=== PATIENT | female | born 1940 | race Caucasian/White ===

== ENCOUNTER 2016-12-30 15:31 | Emergency (ER) | payer MEDICARE, OTHER ==
[2016-12-30] MEDS ORDERED: IPRATROPIUM/ALBUTEROL SULFATE 3 ML AMPUL.NEB NEB ONE (15:52)
[2016-12-30] MEDS: IPRATROPIUM/ALBUTEROL SULFATE 3 ML AMPUL.NEB NEB ONE (15:55)
[2016-12-30 16:06] LABS: BASOPHILS % 0.8 (0.0-1.5); EOSINOPHILS % 6.2 % (0.0-6.8); LYMPHOCYTES # 1.5 # k/uL (0.6-4.0); MEAN CORPUSCULAR HEMOGLOBIN 32.5 pg (28.0-34.0); MONOCYTES # 0.3 # k/uL (0.0-0.9); MONOCYTES % 6.4 % (0.0-11.0)
[2016-12-30 16:21] LABS: eGFR (African) > 60; eGFR (Non-African) > 60
[2016-12-30] MEDS: ALBUTEROL SULFATE 2.5 MG/3 ML AMPUL.NEB NEB ONE (16:50)
--- NOTE | 2016-12-30 16:53 | ED Physician Documentation ---
Dyspnea - HISTORIAN Historian: patient, child - HPI Stated Complaint: possible pneumonia Chief Complaint: Dyspnea Duration: continues in ED Initiating Event: upper respiratory illness Severity: severe Exacerbated By: coughing Associated Symptoms: chills, fever Further Comments: yes (76 year old female patient presents with complaints of wheezing, fatigue, SOB, "feeling sick". Patient states she has not felt well in weeks, states she has become significantly worse in the past few days. Today is "very tired and weak, hard to breath". RA sat on arrival 91%) - ROS CONST: weakness EYES/ENT: nasal drainage, nasal congestion. denies: problems with vision, sore throat GI/: none NEURO/PSYCH: denies: headache MS/SKIN/LYMPH: none - PAST HX Lung Disease: COPD, pneumonia (frequent episodes >10), other (Frequent pneumonia , osteoporosis, constipation, asthma) Surgeries/Procedures: appendectomy, cholecystectomy Allergies/Adverse Reactions: Allergies Allergy/AdvReac Type Severity Reaction Status Date / Time alendronate sodium Allergy Verified 12/30/16 16:26 [From Fosamax] aspirin Allergy Verified 12/30/16 16:26 cefuroxime Allergy Verified 12/30/16 16:26 chocolate flavor Allergy Verified 12/30/16 16:26 codeine Allergy Verified 12/30/16 16:26 egg yolk Allergy Verified 12/30/16 16:26 ibuprofen [From Advil] Allergy Verified 12/30/16 16:26 iodine Allergy Verified 12/30/16 16:26 milk Allergy Verified 12/30/16 16:26 ondansetron Allergy Verified 12/30/16 16:26 levofloxacin [From Levaquin] AdvReac Unknown No Reaction Verified 12/30/16 16:26 - SOCIAL HX Smoking History: non-smoker (never smoked) - FAMILY HX Family History: denies: none - VITAL SIGNS Vital Signs: Vital Signs Temp Pulse Resp BP Pulse Ox 98.7 F 85 24 193/81 96 12/30/16 15:34 12/30/16 16:43 12/30/16 15:34 12/30/16 15:34 12/30/16 16:43 - REVIEWED ASSESSMENTS Nursing Assessment Reviewed: Yes Vitals Reviewed: Yes Progress - Progress Progress: Repeated albuterol neb and pulmocort neb given. RA sat 88-89%, Patient requesting transfer to [place] for inpatient treatment. 1720 Call to [place] for transfer 1840 Call from Daisy at [place], no bed available. 1845 Call to [facility]. [address] Coy - patient accepted for transfer; report to Sweta ALICEAP. ED Results Lab/Radiology - Lab Results Lab Results: Lab Results 12/30/16 12/30/16 16:00 16:00 WBC 4.20 K/ul K/ul (4.00-12.00) RBC 4.04 M/ul M/ul (3.90-5.20) Hgb 13.1 g/dL g/dL (12.0-16.0) Hct 38.8 % % (34.5-46.5) MCV 95.9 fl fl (80.0-100.0) MCH 32.5 pg pg (28.0-34.0) MCHC 33.8 g/dL g/dL (30.0-36.0) RDW 18.3 % H % (11.3-14.3) Plt Count 212 K/mm3 K/mm3 (130-400) Neut % (Auto) 47.3 % % (39.0-79.0) Lymph % (Auto) 36.0 % % (16.0-50.0) [place] % (Auto) 6.4 % % (0.0-11.0) Eos % (Auto) 6.2 % % (0.0-6.8) Baso % (Auto) 0.8 (0.0-1.5) Neut # 2.0 # k/uL # k/uL (1.4-7.7) Lymph # 1.5 # k/uL # k/uL (0.6-4.0) Greene # 0.3 # k/uL # k/uL (0.0-0.9) Eos # 0.3 # k/uL # k/uL (0.0-0.6) Baso # 0.0 # k/uL # k/uL (0.0-0.5) Reactive Lymphs % 3.3 % % (0.0-5.0) Reactive Lymphs # 0.1 # k/uL # k/uL (0.0-0.8) Sodium 126 mmol/L L mmol/L (136-145) Potassium 3.8 mmol/L mmol/L (3.5-5.0) Chloride 86 mmol/L L mmol/L (98-110) Carbon Dioxide 33 mmol/L H mmol/L (20-32) BUN 8 mg/dL L mg/dL (10-26) Creatinine 0.6 mg/dL mg/dL (0.4-1.5) Est GFR ( Amer) > 60 (60 - ) Est GFR (Non-Af Amer) > 60 (60 - ) Glucose 109 mg/dL H mg/dL (70-99) Calcium 9.8 mg/dL mg/dL (8.5-10.5) Total Bilirubin 0.4 mg/dL mg/dL (0.2-1.2) AST 22 U/L U/L (0-41) ALT 9 U/L U/L (0-45) Alkaline Phosphatase 29 U/L L U/L (46-116) Total Protein 7.9 g/dL g/dL (6.0-8.5) Albumin 4.4 g/dL g/dL (3.0-5.5) - Orders Orders: ED Orders Category Date Time Status Continuous EKG monitoring Q30M Care 12/30/16 15:52 Active Continuous Pulse Oximetry Q30M Care 12/30/16 15:[address] Saline Lock/IV NOW Care 12/30/16 15:53 Active CHEST 2 VIEW [CHEST P.A.&LAT 2 VIEWS] [RAD] Stat Exams 12/30/16 Ordered CBC/PLATELET/DIFF Stat Lab 12/30/16 16:00 Completed CMP Stat Lab 12/30/16 16:00 Completed Albuterol Sulfate [Ventolin] Med 12/30/16 16:48 Once 2.5 mg NEB NOW ONE Ipratropium/Albuterol Sulfate [Duoneb] Med 12/30/16 15:52 Discontinued 3 ml NEB .STK-MED ONE Ipratropium/Albuterol Sulfate [Duoneb] Med 12/30/16 15:53 Discontinued 3 ml NEB NOW ONE methylPREDNISolone SOD SUCC [Solu-MEDROL] Med 12/30/16 16:48 Once 125 mg IVP NOW ONE Oxygen Daily Oxygen 12/30/16 16:00 Ordered Chest 2 views History: Findings: Hazy opacity at the lung bases may represent overlying chest wall attenuation but mild bibasilar infiltrate or atelectasis cannot be excluded. The lungs are hyperinflated. calcified granulomas are present. Heart size is normal. Impression: Hazy bibasilar infiltrate or atelectasis versus chest wall attenuation. Hyperinflation noted. Findings are unchanged since July 07, 2016. Dyspnea Physical Exam - EXAM General Appearance: moderate distress EENT: eye inspection normal, pharynx normal, no signs of dehydration, GENE, no nystagmus, TM's nml, other (rhinorrhea ) Respiratory: no pain on inspiration, speaks full sentences, accessory muscle use , wheezes (inspiratory and expiratory), rhonchi, other (Increased work of breathing, RR 28-32). No: chest wall tenderness CVS: reg. 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
[2016-12-30] MEDS: methylPREDNISolone SOD SUCC 125 MG/2 ML VIAL IVP ONE (16:58)
[2016-12-30] MEDS ORDERED: BUDESONIDE 0.5MG/2ML AMPUL.NEB NEB ONE (17:22)
[2016-12-30] MEDS: BUDESONIDE 0.5MG/2ML AMPUL.NEB NEB SCH (17:35)
[2016-12-30] MEDS: LEVALBUTEROL HCL 1.25 MG/3 ML AMPUL.NEB NEB ONE (19:11)
[2016-12-30 19:49] VITALS: BP 132/64
--- NOTE | 2016-12-31 07:39 | Diagnostic Imaging Report ---
[facility] [address] [facility].[address] [address] Report Submission Date: Dec 30, 2016 4:51:06 PM SENIOR TRIAL ATTORNEY Patient Study Name: BEBETO RANDOLPH Date: Dec 30, 2016 4:25:20 PM SENIOR TRIAL ATTORNEY Modality Type: CR Gender: F Description: CHEST : 36 Institution: [facility] Physician: MEHREEN PEREZ Chest 2 views History: Findings: Hazy opacity at the lung bases may represent overlying chest wall attenuation but mild bibasilar infiltrate or atelectasis cannot be excluded. The lungs are hyperinflated. calcified granulomas are present. Heart size is normal. Impression: Hazy bibasilar infiltrate or atelectasis versus chest wall attenuation. Hyperinflation noted. Findings are unchanged since July 07, 2016. Electronically signed on Dec 30, 2016 4:51:06 PM SENIOR TRIAL ATTORNEY by: Torres POOLE
== END 2016-12-30 19:40 | disposition short-term general hospital (02) ==
LOC: ED 15:31
DX: J44.1 Chronic obstructive pulmonary disease with (acute) exacerbation (principal); J18.9 Pneumonia, unspecified organism; M81.0 Age-related osteoporosis without current pathological fracture; K59.00 Constipation, unspecified
CPT/HCPCS: 71020; 80053; 85025; 87040; J2930; J7614; J7626; 87400; 94640; 96374; 99283; 99284; S1016

== ENCOUNTER 2017-03-11 06:42 | Inpatient (IN) | payer MEDICARE, OTHER ==
[2017-03-11] MEDS ORDERED: IPRATROPIUM/ALBUTEROL SULFATE 3 ML AMPUL.NEB NEB ONE ×2 (07:03→07:04)
--- NOTE | 2017-03-11 07:11 | ED Physician Documentation ---
General Adult - HISTORIAN Historian: patient, paramedics - HPI Stated Complaint: Shortness of Breath Chief Complaint: General Adult Onset: days ago (1) Timing: still present Severity: moderate Further Comments: yes (Pt is a 76 yo female with hx COPD and asthma, as well as recurrent pneumonia, who presents to ER by ambulance for dyspnea. Pt c/o "a catching" in her L chest when she takes a breath. "I thought I was going to ," she says for not being able to catch her breath.) - ROS CONST: no problems EYES/ENT: none CVS/RESP: chest pain ("a catching in L chest"), shortness of breath GI/: nausea (yesterday) MS/SKIN/LYMPH: none - PAST HX Past History: asthma, COPD, other (pneumonia x 10 episodes) Other History: other (OA, osteoporosis) Surgeries/Procedures: other (appendectomy, tonsillectomy, salping/oophrectomy, lung biopsy for aspergilosis 20 yrs ago.) - SOCIAL HX Smoking History: non-smoker - FAMILY HX Family History: No - VITAL SIGNS Vital Signs: Vital Signs Temp Pulse Resp BP Pulse Ox 98 F 83 18 172/71 89 L 03/11/17 06:45 03/11/17 06:45 03/11/17 06:45 03/11/17 06:45 03/11/17 06:45 - REVIEWED ASSESSMENTS Nursing Assessment Reviewed: Yes Vitals Reviewed: Yes <Dawood Mcpherson - Last Filed: 03/11/17 07:14> - VITAL SIGNS Vital Signs: Vital Signs Temp Pulse Resp BP Pulse Ox 98 F 82 18 172/71 95 03/11/17 06:45 03/11/17 07:04 03/11/17 06:45 03/11/17 06:45 03/11/17 07:04 <ARUNA VERDE - Last Filed: 03/11/17 08:25> - PAST HX Allergies/Adverse Reactions: Allergies Allergy/AdvReac Type Severity Reaction Status Date / Time alendronate sodium Allergy Verified 03/11/17 06:58 [From Fosamax] aspirin Allergy Verified 03/11/17 06:58 cefuroxime Allergy Verified 03/11/17 06:58 chocolate flavor Allergy Verified 03/11/17 06:58 codeine Allergy Verified 03/11/17 06:58 egg yolk Allergy Verified 03/11/17 06:58 ibuprofen [From Advil] Allergy Verified 03/11/17 06:58 iodine Allergy Verified 03/11/17 06:58 milk Allergy Verified 03/11/17 06:58 ondansetron Allergy Verified 03/11/17 06:58 levofloxacin [From Levaquin] AdvReac Unknown No Reaction Verified 03/11/17 06:58 Progress - Progress Progress: Duoneb HFN Care transferred to [facility] at 0700. <Dawood Mcpherson - Last Filed: 03/11/17 07:14> - Progress Progress: [address] Milan, will admit for asthma exacerbation with hypoxia, continue to monitor hyponatremia. Patient agrees with admission. <ARUNA VERDE - Last Filed: 03/11/17 08:25> ED Results Lab/Radiology - Orders Orders: ED Orders Category Date Time Status Continuous EKG monitoring Q30M Care 03/11/17 07:04 Ordered Continuous Pulse Oximetry Q30M Care 03/11/17 07:[address] Saline Lock/IV NOW Care 03/11/17 07:04 Ordered CHEST 1 VIEW [RAD] Stat Exams 03/11/17 07:04 Ordered CBC/PLATELET/DIFF Routine Lab 03/11/17 07:04 Ordered CKMB Stat Lab 03/11/17 Ordered CMP Routine Lab 03/11/17 07:04 Ordered CREATINE KINASE Routine Lab 03/11/17 07:04 Ordered NT-proBNP Stat Lab 03/11/17 Ordered TROPONIN I (cTnI) Stat Lab 03/11/17 07:04 Ordered Ipratropium/Albuterol Sulfate [Duoneb] Med 03/11/17 07:03 Once 3 ml NEB NOW ONE Oxygen Daily Oxygen 03/11/17 07:15 Ordered EKG WITH COMPARISON Stat Ther 03/11/17 07:04 Ordered <Dawood Mcpherson - Last Filed: 03/11/17 07:14> - Radiology Radiology Impressions: Single frontal view of the chest History: SOA Findings: Comparison: December 30, 2016 Emphysema is again noted. Chronic interstitial lung changes are present , pulmonary hilar prominence seen. There is bibasilar atelectasis. Cardiomegaly Calcified hilar lymph nodes are noted. Right lung apical rounded structure is noted, unclear if external to the patient, attention on followup. No acute osseous pathology. Impression: 1. Chronic interstitial lung changes, perihilar bronchiectasis 2. Bibasilar atelectasis/ patchy infiltrate. Small left pleural effusion may be present 3. Cardiomegaly with mild pulmonary vascular congestion. Calcified right hilar lymph nodes Electronically signed on Mar 11, 2017 7:27:52 AM CDT by: Karmen Fried - Orders Orders: ED Orders Category Date Time Status Continuous EKG monitoring Q30M Care 03/11/17 07:04 Active Continuous Pulse Oximetry Q30M Care 03/11/17 07:[address] Saline Lock/IV NOW Care 03/11/17 07:04 Active CHEST 1 VIEW [RAD] Stat Exams 03/11/17 07:04 Taken CBC/PLATELET/DIFF Routine Lab 03/11/17 07:20 Received CKMB Stat Lab 03/11/17 07:20 Received CMP Routine Lab 03/11/17 07:20 Received CREATINE KINASE Routine Lab 03/11/17 07:20 Received NT-proBNP Stat Lab 03/11/17 07:20 Received TROPONIN I (cTnI) Stat Lab 03/11/17 07:20 Received Ipratropium/Albuterol Sulfate [Duoneb] Med 03/11/17 07:04 Discontinued 3 ml NEB .STK-MED ONE Ipratropium/Albuterol Sulfate [Duoneb] Med 03/11/17 07:03 Discontinued 3 ml NEB NOW ONE Oxygen Daily Oxygen 03/11/17 07:15 Ordered EKG WITH COMPARISON Stat Ther 03/11/17 07:04 Ordered <ARUNA VERDE - Last Filed: 03/11/17 08:25> General Adult Physical Exam - PHYSICAL EXAM GENERAL APPEARANCE: mild distress EENT: pharynx normal NECK: normal inspection, supple RESPIRATORY: chest non-tender, wheezes, rales CVS: reg rate & rhythm, heart sounds normal ABDOMEN: soft, no organomegaly, normal bowel sounds BACK: normal inspection, no CVA tenderness SKIN: warm/dry, normal color EXTREMITIES: non-tender, normal range of motion NEURO: oriented X3, motor nml, sensation nml <Dawood Mcpherson - Last Filed: 03/11/17 07:14> Discharge <Dawood Mcpherson - Last Filed: 03/11/17 07:14> Decision to Admit: NO Decision Time: 08:23 <ARUNA VERDE - Last Filed: 03/11/17 08:25> Clincal Impression: Asthma exacerbation in COPD, Hyponatremia, Hypoxemia requiring supplemental oxygen Condition: Stable Disposition: 09 ADMITTED INPATIENT
[2017-03-11 07:34] LABS: BASOPHILS % 0.7 (0.0-1.5); EOSINOPHILS % 6.9 % (0.0-6.8); MONOCYTES % 7.3 % (0.0-11.0)
[2017-03-11 07:47] LABS: eGFR (African) > 60; eGFR (Non-African) > 60
[2017-03-11] MEDS ORDERED: KETOROLAC TROMETHAMINE 30 MG/1ML VIAL IVP ONE (07:54)
[2017-03-11] MEDS ORDERED: methylPREDNISolone SOD SUCC 125 MG/2 ML VIAL IVP ONE (08:12)
[2017-03-11] MEDS ORDERED: methylPREDNISolone SOD SUCC 125 MG/2 ML VIAL IVP SCH ×2 (09:00→13:00)
[2017-03-11] MEDS ORDERED: FLUTICASONE/SALMETEROL 250-50 INHALER IH SCH (09:00)
[2017-03-11] MEDS: SALINE FLUSH 10 ML DISP.SYRIN IV SCH ×2 (09:08→20:12)
[2017-03-11] MEDS: IPRATROPIUM/ALBUTEROL SULFATE 3 ML AMPUL.NEB NEB SCH ×4 (09:10→20:12)
[2017-03-11] MEDS ORDERED: FLUTICASONE/SALMETEROL 250-50 INHALER IH ONE (09:35)
[2017-03-11 09:49] VITALS: BMI 24.4
[2017-03-11] MEDS: ENOXAPARIN SODIUM 40 MG/0.4 ML DISP.SYRIN SQ SCH ×2 (10:09→20:12)
--- NOTE | 2017-03-11 11:16 | History and Physical Report ---
History of Present Illnes - History of Present Illness Reason for Visit: short of breath History of Present Illness: Patient reports feeling very good 2 days ago. Then yesterday started with cough and wheezing. "Usually do this with weather change." Has asthma/COPD on HFN and Advair. She was doing HFN every 4 hours with help at first. Today seemed to get worse and more SOB so called for ambulance. Found to have wheezing and hypoxia with probably bibasilar infiltrates. 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 "Just feel like I am not going to be around for much longer." - Past Medical History Pulmonary: Asthma, COPD, Pneumonia (10 times). denies: Other Musculoskeletal: Osteoarthritis, Other (Osteoporosis) - Past Surgical History Past Surgical History: Appendectomy, Tonsillectomy, Other (salping/oophrectomy) - Past Family History Mother Family History: Father Family History: - Past Social History Smoke: No Alcohol: None Drugs: None Lives: Alone Domestic Violence: Negative - Health Maintenance Health Maintenance: Cholesterol, Influenza Vaccine, Pneumococcal Vaccine, Mammogram Influenza Vaccine: Current for this Influenza Season Pneumonia Vaccine: Yes Resuscitation Status: Resusciation Status Resuscitation Status Full Code Review of Systems - Review of Systems Constitutional: Fever, Chills, Weakness Eyes: negative: pain ENT: negative: Ear Pain, Nose Discharge Respiratory: Cough, Shortness of Breath Cardiovascular: negative: Chest Pain Gastrointestinal: Nausea. negative: Vomiting, Abdominal Pain, Diarrhea Genitourinary: negative: Dysuria Musculoskeletal: negative: Neck Pain Skin: negative: Rash Neurological: Weakness - Medications/Allergies Allergies/Adverse Reactions: Allergies Allergy/AdvReac Type Severity Reaction Status Date / Time alendronate sodium Allergy Verified 03/11/17 06:58 [From Fosamax] aspirin Allergy Verified 03/11/17 06:58 cefuroxime Allergy Verified 03/11/17 06:58 chocolate flavor Allergy Verified 03/11/17 06:58 codeine Allergy Verified 03/11/17 06:58 egg yolk Allergy Verified 03/11/17 06:58 ibuprofen [From Advil] Allergy Verified 03/11/17 06:58 iodine Allergy Verified 03/11/17 06:58 milk Allergy Verified 03/11/17 06:58 ondansetron Allergy Verified 03/11/17 06:58 levofloxacin [From Levaquin] AdvReac Unknown No Reaction Verified 03/11/17 06:58 Current Inpatient Medications: Current Inpatient Medications Albuterol/Ipratropium (Duoneb) 3 ml NEB QID [facility] Last Admin: 03/11/17 09:10 Dose: 3 ml Enoxaparin Sodium (Lovenox) 40 mg SQ Q12 [facility] Stop: 03/25/17 08:59 Last Admin: 03/11/17 10:09 Dose: 40 mg Methylprednisolone Sodium Succinate (Solu-Medrol) 62.5 mg IVP BID [facility] Last Admin: 03/11/17 09:15 Dose: Not Given Fluticasone/Salmeterol (Advair 250-50 Diskus) 1 each IH BID [facility] Last Admin: 03/11/17 10:08 Dose: Not Given Sodium Chloride (Normal Saline Flush) 3 ml IV BID [facility] Last Admin: 03/11/17 09:08 Dose: 3 ml Exam - Exam Vital Signs: Vital Signs (72 hours) 03/11/17 03/11/17 03/11/17 08:38 08:58 09:00 Temperature 97.9 F Pulse Rate 84 Pulse Rate [ 72 81 Pulse ox] Respiratory 18 24 Rate Blood Pressure 158/68 163/73 [Right Arm] O2 Sat by Pulse 95 94 94 Oximetry 03/11/17 03/11/17 03/11/17 09:30 09:33 10:00 Temperature 98.2 F Pulse Rate 84 89 Pulse Rate [ 85 Pulse ox] Respiratory 18 Rate Blood Pressure 151/75 [Right Arm] O2 Sat by Pulse 99 93 Oximetry General: Alert, Oriented to Person, Oriented to Place, Oriented to Time, Cooperative, No acute distress HEENT: Atraumatic, PERRLA, EOMI, Mouth Mucous membr. moist/[place] Neck: Normal Range of Motion Lungs: Wheezes, Rhonchi Cardiovascular: Regular rate Abdomen: Normal bowel sounds Integumentary: Normal Extremities: No edema Neurological: Normal gait, Normal speech, Strength Equal Bilat, Normal tone Psych/Mental Status: Mental status NL, Mood NL, Appropriate Affect, Intact Judgment Assessment/Plan - Assessment/Plan (1) Asthma exacerbation in COPD Status: Acute Current Visit: Yes Plan: Admit for O2, IV steroids and duonebs. Lovenox for DVT prevention. (2) Hypoxemia requiring supplemental oxygen Status: Acute Current Visit: Yes (3) Pneumonia Status: Acute Current Visit: No Qualifiers: Pneumonia type: due to unspecified organism Laterality: bilateral Lung location: lower lobe of lung Qualified Code(s): J18.9 - Pneumonia, unspecified organism Plan: Will start on oral augmentin and IV zithromax due to her allergies. Blood cultures. VTE Assessment - RISK FACTOR SCORE VTE RISK FACTOR SCORES: AGE OVER 60 YEARS, ACUTE INFECTION OTHER THEN SEPSIS - RISK VTE MODERATE RISK: SCORE OF 2 (RISK PROXIMAL DVT 2-4%) PROPHYAXIS NEEDED
--- NOTE | 2017-03-11 11:31 | Diagnostic Imaging Report ---
[facility] [address] [facility].[address] 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 Chronic interstitial lung changes are present , pulmonary hilar prominence seen. There is bibasilar atelectasis. Cardiomegaly Calcified hilar lymph nodes are noted. Right lung apical rounded structure is noted, unclear if external to the patient, attention on followup. No acute osseous pathology. Impression: 1. Chronic interstitial lung changes, perihilar bronchiectasis 2. Bibasilar atelectasis/ patchy infiltrate. Small left pleural effusion may be present 3. Cardiomegaly with mild pulmonary vascular congestion. Calcified right hilar lymph nodes Electronically signed on Mar 11, 2017 7:27:52 AM CDT by: Karmen POOLE
[2017-03-11] MEDS ORDERED: ONDANSETRON HCL/PF 4 MG/ 2ML VIAL IVP PRN (11:40)
[2017-03-11] MEDS: AZITHROMYCIN 500 MG in 0.9 % SODIUM CHLORIDE 250 ML IV SCH (12:45)
[2017-03-11] MEDS: AMOXICILLIN/POT 875/125 1 EACH PO SCH ×2 (12:46→20:11)
[2017-03-11] MEDS: methylPREDNISolone SOD SUCC 125 MG/2 ML VIAL IVP SCH ×2 (17:31→23:53)
[2017-03-12 06:49] LABS: BASOPHILS % 0.1 (0.0-1.5); EOSINOPHILS % 1.3 % (0.0-6.8); MEAN CORPUSCULAR HEMOGLOBIN 31.3 pg (28.0-34.0); MEAN CORPUSCULAR VOLUME 96.5 fl (80.0-100.0); MONOCYTES % 1.9 % (0.0-11.0); NEUTROPHILS # 2.5 # k/uL (1.4-7.7)
[2017-03-12 07:03] LABS: eGFR (African) > 60; eGFR (Non-African) > 60
[2017-03-12] MEDS: ENOXAPARIN SODIUM 40 MG/0.4 ML DISP.SYRIN SQ SCH ×2 (09:40→20:03)
[2017-03-12] MEDS: AMOXICILLIN/POT 875/125 1 EACH PO SCH ×2 (09:40→20:03)
[2017-03-12] MEDS: SALINE FLUSH 10 ML DISP.SYRIN IV SCH (09:41)
[2017-03-12] MEDS: methylPREDNISolone SOD SUCC 125 MG/2 ML VIAL IVP SCH ×2 (10:03→18:00)
[2017-03-12] MEDS: IPRATROPIUM/ALBUTEROL SULFATE 3 ML AMPUL.NEB NEB SCH ×4 (10:07→21:25)
[2017-03-12] MEDS ORDERED: ACETAMINOPHEN 325 MG TABLET ONE (11:13)
[2017-03-12] MEDS: ACETAMINOPHEN 325 MG TABLET PO PRN (11:15)
[2017-03-12] MEDS: AZITHROMYCIN 500 MG in 0.9 % SODIUM CHLORIDE 250 ML IV SCH (11:37)
--- NOTE | 2017-03-12 17:40 | Inpatient Progress Note ---
Subjective - Required Recertification Statement I anticipate X number of days because-include discharge plan: 2 - Review of Systems Events since last encounter: Alesia says that "my lungs feel worse today than yesterday". She is afebrile. She is at 92% on 3LNC, but dropped to 86% on RA. She is concerned about not having a bowel movement for the past several days, and would like some prune juice. General: Denies: Chills HEENT: Denies: Head Aches Pulmonary: Dyspnea, Cough Cardiovascular: Denies: Chest Pain Gastrointestinal: Denies: Nausea Genitourinary: Denies: Dysuria, Frequency Musculoskeletal: Denies: Neck Pain, Shoulder Pain Neurological: Weakness. Denies: Confusion Objective - Exam Vitals and I&O: Vital Signs Temp 97.8 F 03/12/17 14:00 Pulse 90 03/12/17 14:00 Resp 20 03/12/17 10:00 BP 119/43 03/12/17 14:00 Pulse Ox 94 03/12/17 14:00 Intake & Output 03/11/17 03/12/17 03/12/17 23:59 11:59 23:59 Intake Total 243 240 580 Balance 243 240 580 Weight 56.7 kg Intake: IV 3 Left Antecubital 3 Oral 240 240 580 Other: Voiding Method Toilet Toilet # Voids 4 3 # Bowel Movements 0 General: Alert, Oriented to Person, Oriented to Place HEENT: Atraumatic, PERRLA Neck: Supple, No JVD Lungs: Wheezes, Rales, Rhonchi Cardiovascular: Regular rate Abdomen: Normal bowel sounds, Soft, No tenderness Extremities: No clubbing, No cyanosis, No edema Skin: Normal, [place], Pale Neurological: Normal gait, Normal speech, Strength Equal Bilat Psych/Mental Status: Mental status NL - Results Results: Laboratory Results WBC 3.10 K/ul (4.00-12.00) L 03/12/17 06:30 RBC 3.88 M/ul (3.90-5.20) L 03/12/17 06:30 Hgb 12.1 g/dL (12.0-16.0) 03/12/17 06:30 Hct 37.4 % (34.5-46.5) 03/12/17 06:30 MCV 96.5 fl (80.0-100.0) 03/12/17 06:30 MCH 31.3 pg (28.0-34.0) 03/12/17 06:30 MCHC 32.4 g/dL (30.0-36.0) 03/12/17 06:30 RDW 18.0 % (11.3-14.3) H 03/12/17 06:30 Plt Count 208 K/mm3 (130-400) 03/12/17 06:30 Neut % (Auto) 82.4 % (39.0-79.0) H 03/12/17 06:30 Lymph % (Auto) 14.1 % (16.0-50.0) L 03/12/17 06:30 [place] % (Auto) 1.9 % (0.0-11.0) 03/12/17 06:30 Eos % (Auto) 1.3 % (0.0-6.8) 03/12/17 06:30 Baso % (Auto) 0.1 (0.0-1.5) 03/12/17 06:30 Neut # 2.5 # k/uL (1.4-7.7) 03/12/17 06:30 Lymph # 0.4 # k/uL (0.6-4.0) L 03/12/17 06:30 Ramsey # 0.1 # k/uL (0.0-0.9) 03/12/17 06:30 Eos # 0.0 # k/uL (0.0-0.6) 03/12/17 06:30 Baso # 0.0 # k/uL (0.0-0.5) 03/12/17 06:30 Reactive Lymphs % 0.3 % (0.0-5.0) 03/12/17 06:30 Reactive Lymphs # 0.0 # k/uL (0.0-0.8) 03/12/17 06:30 Sodium 122 mmol/L (136-145) L 03/12/17 06:30 Potassium 5.6 mmol/L (3.5-5.0) H 03/12/17 06:30 Chloride 90 mmol/L (98-110) L 03/12/17 06:30 Carbon Dioxide 26 mmol/L (20-32) 03/12/17 06:30 BUN 8 mg/dL (10-26) L 03/12/17 06:30 Creatinine 0.6 mg/dL (0.4-1.5) 03/12/17 06:30 Estimated Creat Clear 81 03/12/17 06:30 Est GFR ( Amer) > 60 (60-) 03/12/17 06:30 Est GFR (Non-Af Amer) > 60 (60-) 03/12/17 06:30 Glucose 148 mg/dL (70-99) H 03/12/17 06:30 Calcium 10.2 mg/dL (8.5-10.5) 03/12/17 06:30 Total Bilirubin 0.6 mg/dL (0.2-1.2) 03/11/17 07:20 AST 23 U/L (0-41) 03/11/17 07:20 ALT 8 U/L (0-45) 03/11/17 07:20 Alkaline Phosphatase 18 U/L (46-116) L 03/11/17 07:20 Creatine Kinase 97 U/L (0-225) 03/11/17 07:20 CK-MB (CK-2) 2.9 ng/mL (0.0-5.6) 03/11/17 07:20 Troponin I < 0.03 ng/mL (0.03-0.06) L 03/11/17 07:20 NT-Pro-B Natriuret Pep 750.4 pg/mL (15.0-450.0) H 03/11/17 07:20 Total Protein 7.7 g/dL (6.0-8.5) 03/11/17 07:20 Albumin 4.1 g/dL (3.0-5.5) 03/11/17 07:20 Assessment/Plan - Assessment/Plan (1) Pneumonia Status: Acute Current Visit: No Qualifiers: Pneumonia type: due to unspecified organism Laterality: bilateral Lung location: lower lobe of lung Qualified Code(s): J18.9 - Pneumonia, unspecified organism Assessment: Continue Augmentin/Azithromycin She will likely need home oxygen at home.
[2017-03-13] MEDS: SALINE FLUSH 10 ML DISP.SYRIN IV SCH ×2 (01:30→08:17)
[2017-03-13] MEDS: methylPREDNISolone SOD SUCC 125 MG/2 ML VIAL IVP SCH ×2 (01:30→09:45)
[2017-03-13] MEDS ORDERED: ACETAMINOPHEN 325 MG TABLET ONE (03:13)
[2017-03-13] MEDS: ACETAMINOPHEN 325 MG TABLET PO PRN (03:15)
[2017-03-13] MEDS: AMOXICILLIN/POT 875/125 1 EACH PO SCH (08:09)
[2017-03-13] MEDS: ENOXAPARIN SODIUM 40 MG/0.4 ML DISP.SYRIN SQ SCH (08:11)
--- NOTE | 2017-03-13 08:50 | Diagnostic Imaging Report ---
[facility]~ [facility] [address] [facility] [address] [place] [address]. [id number] ~ ~ ~ ~ Report Submission Date: Mar 13, 2017 8:18:37 AM CDT Patient ~ Study Name: BEBETO RANDOLPH ~ Date: Mar 13, 2017 6:42:50 AM CDT ~ Modality Type: CR Gender: F ~ Description: CHEST : 36 ~ Institution: [facility] Physician: [facility] ~ ~ ~ ~ 2 views of the chest History: Pneumonia Findings: Comparison: January 11, 2017 Cardiomegaly and aortic calcification seen. There is tracheal deviation to the right by the aortic knob Chronic interstitial lung changes are again noted, there is mild pulmonary congestion Bibasilar patchy atelectasis versus infiltrate. Small left pleural effusion Calcified right hilar lymph nodes are present. Multiple level compression deformities of midthoracic vertebral bodies Impression: No significant change Perihilar bronchiectatic changes, chronic interstitial lung disease. Cardiomegaly with mild congestion. Bibasilar patchy atelectasis/infiltrate. Small left pleural effusion ~ Electronically signed on Mar 13, 2017 8:18:37 AM CDT by: Karmen POOLE
[2017-03-13] MEDS: IPRATROPIUM/ALBUTEROL SULFATE 3 ML AMPUL.NEB NEB SCH ×2 (09:49→14:43)
[2017-03-13] MEDS: AZITHROMYCIN 500 MG in 0.9 % SODIUM CHLORIDE 250 ML IV SCH (12:29)
[2017-03-13 14:15] LABS: BASOPHILS % 0.1 (0.0-1.5); EOSINOPHILS % 0.2 % (0.0-6.8); MEAN CORPUSCULAR HEMOGLOBIN 31.2 pg (28.0-34.0); MEAN CORPUSCULAR VOLUME 96.8 fl (80.0-100.0); MONOCYTES % 4.3 % (0.0-11.0)
[2017-03-13 14:26] LABS: eGFR (African) > 60; eGFR (Non-African) > 60
[2017-03-13 17:05] VITALS: BP 129/74
--- NOTE | 2017-03-16 08:38 | Discharge Summary ---
DATE OF ADMISSION: March 11, 2017 DATE OF DISCHARGE: March 13, 2017 DIAGNOSES ON THIS HOSPITALIZATION: 1. Bibasilar pneumonia. 2. Asthma exacerbation. 3. Hyponatremia. 4. Hypoxemia. 5. Mild thrombocytopenia. SUMMARIZATION OF ADMISSION HISTORY AND PHYSICAL: This is a 76-year-old female patient of Dr. Milan whom she admitted to [facility] on the March 11, 2017, after she presented with a 2-day history of increasing shortness of breath. She got worse and more short of breath and called an ambulance and was brought to the emergency room where she was noted to have wheezing and hypoxia with bibasilar infiltrates. HOSPITAL COURSE: She was admitted. She was started on oxygen. Initially, it took 3 L to keep her above 90%. She was able to be weaned down to 2 L by discharge. She was continued on Augmentin 875 mg p.o. b.i.d. for 10 days and Zithromax 250 mg p.o. daily for 5 days. I sent a prescription to [facility] for oxygen which will be done at 2 L per nasal cannula. MEDICATIONS ON DISCHARGE: Continue the rest of her home medications including her nebulizer. DISCHARGE INSTRUCTIONS: She will follow up with Dr. Milan next week. VIRGILIO
== END 2017-03-13 16:24 | disposition home or self-care (01) | DRG 194 ==
LOC: ED 06:42 → SOUTH 08:18
PROVIDERS: ADMIT Family Medicine; ATTEND Family Medicine
DX: J18.9 Pneumonia, unspecified organism (principal); J45.901 Unspecified asthma with (acute) exacerbation; E87.1 Hypo-osmolality and hyponatremia; R09.02 Hypoxemia; D69.6 Thrombocytopenia, unspecified
CPT/HCPCS: 36415; 71010; 71020; 80048; 80053; 82550; 82553; 83880; 84484; 85025; 93005; J0456; J1650; J1885; J2405; J2930; J7050; 99222; 99232; 99238; 99284

== ENCOUNTER 2017-07-25 14:28 | Observation (INO) | payer MEDICARE, OTHER ==
--- NOTE | 2017-07-25 14:36 | ED Physician Documentation ---
General Adult - HISTORIAN Historian: patient, paramedics - HPI Stated Complaint: cp/sob Chief Complaint: General Adult Onset: hours Timing: still present Severity: moderate Further Comments: yes (Pt is a 77 yo female with sob, wheezing x several weeks, worse since yesterday and today with chest pain. 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 Pt has not had n/v, diaphoresis. Pt is on home O2 at night, but has been using it throughout the day for several days.) - ROS CONST: no problems EYES/ENT: none CVS/RESP: shortness of breath, other (wheezing) GI/: none MS/SKIN/LYMPH: none - PAST HX Past History: asthma, COPD, other (frequent episodes pneumonia; hx aspergillosis ; osteoarthritis, osteoporosis.) Surgeries/Procedures: other (appendectomy; tonsillectomy; salping/oophrectomy) Allergies/Adverse Reactions: Allergies Allergy/AdvReac Type Severity Reaction Status Date / Time alendronate sodium Allergy Unknown Verified 07/25/17 15:20 [From Fosamax] aspirin Allergy Unknown Verified 07/25/17 15:20 cefuroxime Allergy Unknown Verified 07/25/17 15:20 chocolate flavor Allergy Unknown Verified 07/25/17 15:20 codeine Allergy Unknown Verified 07/25/17 15:20 egg yolk Allergy Unknown Verified 07/25/17 15:20 ibuprofen [From Advil] Allergy Unknown Verified 07/25/17 15:20 iodine Allergy Unknown Verified 07/25/17 15:20 milk Allergy Unknown Verified 07/25/17 15:20 ondansetron Allergy Unknown Verified 07/25/17 15:20 levofloxacin [From Levaquin] AdvReac Unknown No Reaction Verified 03/11/17 06:58 - SOCIAL HX Smoking History: non-smoker Alcohol Use: none Drug Use: none - FAMILY HX Family History: No - VITAL SIGNS Vital Signs: Vital Signs Temp Pulse Resp BP Pulse Ox 129/74 03/13/17 14:56 - REVIEWED ASSESSMENTS Nursing Assessment Reviewed: Yes Vitals Reviewed: Yes Progress - Progress Progress: Chest x-ray: Comparison exam: 13 March 2017. Findings: Single view of the chest demonstrates cardiac silhouette upper limits normal. Tortuosity of the thoracic aorta. Chronic interstitial changes. Continued haziness involving the left lung base with obscuration of the diaphragm. Right cardiophrenic fat pad. Osseous structures appropriate for age Impression: Stable chronic changes. Continued effusion/consolidation at the left base: possibly chronic. Duoneb HFN NS 500 cc IVF Albuterol HFN Solu-medrol 80 mg IV Admit to Dr. Milan. - EKG/XRAY/CT EKG: NSR (HR=88; normal EKG.) General Adult Physical Exam - PHYSICAL EXAM GENERAL APPEARANCE: mild distress EENT: pharynx normal NECK: normal inspection, supple RESPIRATORY: wheezes (b/l throughout lung david) CVS: reg rate & rhythm, heart sounds normal ABDOMEN: soft, no organomegaly, normal bowel sounds BACK: normal inspection, no CVA tenderness SKIN: warm/dry, normal color EXTREMITIES: non-tender, normal range of motion, no evidence of injury, no edema NEURO: oriented X3, motor nml, sensation nml Discharge Clincal Impression: chest pain Asthma Qualifiers: Asthma severity: unspecified severity Asthma complication type: with acute exacerbation Qualified Code(s): J45.901 - Unspecified asthma with (acute) exacerbation Referrals: Laureen Milan MD [Primary Care Provider] - Condition: Stable Disposition: ADMITTED INPATIENT Decision to Admit: [id number] Decision Time: 16:59
[2017-07-25] MEDS ORDERED: IPRATROPIUM/ALBUTEROL SULFATE 3 ML AMPUL.NEB NEB ONE (15:06)
[2017-07-25 15:22] LABS: EOSINOPHILS % 7.6 % (0.0-6.8); MEAN CORPUSCULAR HEMOGLOBIN 31.4 pg (28.0-34.0); MEAN CORPUSCULAR VOLUME 95.7 fl (80.0-100.0); MONOCYTES % 6.2 % (0.0-11.0); NEUTROPHILS # 2.3 # k/uL (1.4-7.7)
--- NOTE | 2017-07-25 15:30 | Diagnostic Imaging Report ---
DIAZ MORENO [facility] [address] [facility] [address] [address] Report Submission Date: Jul 25, 2017 3:25:02 PM CDT Patient Study Name: BEBETO RANDOLPH Date: Jul 25, 2017 3:08:43 PM CDT Modality Type: CR Gender: F Description: CHEST : 36 Institution: [facility] Physician: DIAZ MORENO Examination: Portable chest History: Chest discomfort Comparison exam: 13 March 2017 Findings: Single view of the chest demonstrates cardiac silhouette upper limits normal. Tortuosity of the thoracic aorta. Chronic interstitial changes. Continued haziness involving the left lung base with obscuration of the diaphragm. Right cardiophrenic fat pad. Osseous structures appropriate for age Impression: Stable chronic changes. Continued effusion/consolidation at the left base: possibly chronic. Electronically signed on Jul 25, 2017 3:25:02 PM CDT by: Basil POOLE
[2017-07-25 15:35] LABS: eGFR (African) > 60; eGFR (Non-African) > 60
[2017-07-25] MEDS ORDERED: ALBUTEROL SULFATE 2.5 MG/3 ML AMPUL.NEB NEB ONE (16:10)
[2017-07-25] MEDS ORDERED: 0.9 % SODIUM CHLORIDE 500 ML IV ONE ×2 (16:12→16:13)
[2017-07-25] MEDS ORDERED: ALBUTEROL SULFATE 2.5 MG/0.5 ML AMPUL.NEB NEB ONE (16:19)
[2017-07-25] MEDS ORDERED: methylPREDNISolone SOD SUCC 40 MG/ML VIAL ONE (16:50)
[2017-07-25] MEDS ORDERED: methylPREDNISolone SOD SUCC 40 MG/ML VIAL IVP SCH (17:00)
[2017-07-25] MEDS ORDERED: IPRATROPIUM/ALBUTEROL SULFATE 3 ML AMPUL.NEB NEB PRN (17:08)
--- NOTE | 2017-07-25 18:08 | History and Physical Report ---
History of Present Illnes - History of Present Illness Reason for Visit: Short of breath History of Present Illness: Patient with asthma presented to the ER with asthma exacerbation via EMS with worsening SOB and wheezing for several days. She got progressively worse at 3: 00 this morning. Wears O2 at night. Tried wearing it with during the day due to her dyspnea but no help. In the ER, noted SAT to be 88% on her 4 liters with lots of wheezes. Had increased her duonebs to every 4 hours at home which helped for awhile. Responded well in the ER to IV solumedrol and duonebs. Had been having some chest pain when she coughs. - Past Medical History Pulmonary: Asthma, COPD, Pneumonia (10 times). denies: Other Musculoskeletal: Osteoarthritis, Other (Osteoporosis) - Past Surgical History Past Surgical History: Appendectomy, Tonsillectomy, Other (salping/oophrectomy) - Past Family History Mother Family History: Father Family History: - Past Social History Smoke: No Alcohol: None Drugs: None Lives: Alone Domestic Violence: Negative - Health Maintenance Health Maintenance: Cholesterol, Influenza Vaccine, Pneumococcal Vaccine, Mammogram Influenza Vaccine: Current for this Influenza Season Pneumonia Vaccine: Yes Resuscitation Status: Resusciation Status Resuscitation Status Full Code Review of Systems - Review of Systems Constitutional: Weakness. negative: Fever Eyes: negative: pain ENT: negative: Ear Pain, Nose Discharge Respiratory: Cough, Shortness of Breath, Wheezing Cardiovascular: Chest Pain. negative: Palpitations, Edema Gastrointestinal: negative: Nausea, Vomiting, Abdominal Pain, Diarrhea, Constipation Genitourinary: negative: Dysuria Musculoskeletal: negative: Neck Pain Skin: negative: Rash Neurological: Weakness - Medications/Allergies Allergies/Adverse Reactions: Allergies Allergy/AdvReac Type Severity Reaction Status Date / Time alendronate sodium Allergy Unknown Verified 07/25/17 15:20 [From Fosamax] aspirin Allergy Unknown Verified 07/25/17 15:20 cefuroxime Allergy Unknown Verified 07/25/17 15:20 chocolate flavor Allergy Unknown Verified 07/25/17 15:20 codeine Allergy Unknown Verified 07/25/17 15:20 egg yolk Allergy Unknown Verified 07/25/17 15:20 ibuprofen [From Advil] Allergy Unknown Verified 07/25/17 15:20 iodine Allergy Unknown Verified 07/25/17 15:20 milk Allergy Unknown Verified 07/25/17 15:20 ondansetron Allergy Unknown Verified 07/25/17 15:20 levofloxacin [From Levaquin] AdvReac Unknown No Reaction Verified 03/11/17 06:58 Current Inpatient Medications: Current Inpatient Medications Albuterol/Ipratropium (Duoneb) 3 ml NEB Q4 HEATH Enoxaparin Sodium (Lovenox) 40 mg SQ QD HEATH Stop: 08/08/17 18:59 Sodium Chloride (Normal Saline) 1,000 mls @ 100 mls/hr IV Q10H HEATH Methylprednisolone Sodium Succinate (Solu-Medrol) 80 mg IVP Q8 HEATH Montelukast Sodium (Singulair) 10 mg PO HS HEATH Sodium Chloride (Normal Saline Flush) 3 ml IV BID HEATH Exam - Exam Vital Signs: Vital Signs (72 hours) 07/25/17 17:49 Temperature 97.7 F Pulse Rate [ 91 H Right Pulse ox] Respiratory 20 Rate Blood Pressure 167/62 [Right Arm] O2 Sat by Pulse 96 Oximetry General: Alert, Oriented to Person, Oriented to Place, Oriented to Time, Cooperative, No acute distress HEENT: Atraumatic, PERRLA, EOMI Neck: Normal Range of Motion Lungs: Wheezes Cardiovascular: Regular rate Abdomen: Normal bowel sounds, Soft, No tenderness Integumentary: Normal Extremities: No edema Neurological: Normal gait, Normal speech, Strength Equal Bilat Psych/Mental Status: Mental status NL, Mood NL, Appropriate Affect, Intact Judgment Assessment/Plan - Assessment/Plan (1) Asthma Status: Acute Current Visit: Yes Qualifiers: Asthma severity: unspecified severity Asthma complication type: with acute exacerbation Qualified Code(s): J45.901 - Unspecified asthma with (acute) exacerbation (2) Asthma exacerbation in COPD Status: Acute Current Visit: No Plan: Plan to admit for IV steroids, duonebs q4hr, and O2 via NC. Lovenox for DVT prevention. (3) Hyponatremia Status: Acute Current Visit: No Plan: IV NS. Monitor labs. (4) Hypoxemia requiring supplemental oxygen Status: Acute Current Visit: No (5) Chest pain Status: Acute Current Visit: Yes Qualifiers: Chest pain type: chest pain on breathing Qualified Code(s): R07.1 - Chest pain on breathing Plan: Suspect chest pain from COPD exacerbation and chest wall inflammation. Will put on telemetry. Monitor cardiac enzymes. VTE Assessment - RISK FACTOR SCORE VTE RISK FACTOR SCORES: AGE OVER 60 YEARS, ANTICIPATED BED CONFINEMENT OR IMMOBILIZATION > 24 HOURS - RISK VTE MODERATE RISK: SCORE OF 2 (RISK PROXIMAL DVT 2-4%) PROPHYAXIS NEEDED
[2017-07-25] MEDS ORDERED: MONTELUKAST SODIUM 10 MG TABLET PO ONE ×2 (19:06→20:01)
[2017-07-25] MEDS: ENOXAPARIN SODIUM 40 MG/0.4 ML DISP.SYRIN SQ SCH (19:19)
[2017-07-25] MEDS: MONTELUKAST SODIUM 10 MG TABLET PO SCH ×2 (19:19→20:06)
[2017-07-25] MEDS: 0.9 % SODIUM CHLORIDE 1,000 ML IV SCH (19:19)
[2017-07-25] MEDS: methylPREDNISolone SOD SUCC 40 MG/ML VIAL IVP SCH (20:06)
[2017-07-25 20:07] VITALS: BMI 24.5
[2017-07-25] MEDS ORDERED: FLUTICASONE/SALMETEROL 250-50 INHALER IH SCH (21:00)
[2017-07-25] MEDS: IPRATROPIUM/ALBUTEROL SULFATE 3 ML AMPUL.NEB NEB SCH (21:10)
[2017-07-25] MEDS: SALINE FLUSH 10 ML DISP.SYRIN IV SCH (23:48)
[2017-07-26] MEDS: IPRATROPIUM/ALBUTEROL SULFATE 3 ML AMPUL.NEB NEB SCH ×6 (01:22→21:40)
[2017-07-26] MEDS: methylPREDNISolone SOD SUCC 40 MG/ML VIAL IVP SCH ×3 (06:14→20:14)
[2017-07-26 06:44] LABS: MEAN CORPUSCULAR HEMOGLOBIN 31.4 pg (28.0-34.0); MEAN CORPUSCULAR VOLUME 96.9 fl (80.0-100.0)
[2017-07-26 06:52] LABS: eGFR (African) > 60; eGFR (Non-African) > 60
[2017-07-26 08:25] LABS: ANISOCYTOSIS 1+ (NEGATIVE); HYPOCHROMASIA 1+ (NEGATIVE); MONOCYTES % 1 % (0-11); SEGMENTED NEUTROPHILS % 58 % (39-79)
[2017-07-26] MEDS: 0.9 % SODIUM CHLORIDE 1,000 ML IV SCH ×3 (09:53→19:10)
[2017-07-26] MEDS: SALINE FLUSH 10 ML DISP.SYRIN IV SCH ×2 (09:54→20:15)
--- NOTE | 2017-07-26 10:55 | Inpatient Progress Note ---
Subjective - Required Recertification Statement I anticipate X number of days because-include discharge plan: 1 - Review of Systems Subjective: Patient improving. Feels better. Objective - Exam Vitals and I&O: Vital Signs Temp 97.4 F L 07/26/17 09:23 Pulse 94 H 07/26/17 10:00 Resp 18 07/26/17 10:00 BP 160/88 07/26/17 09:23 Pulse Ox 95 07/26/17 09:23 Intake & Output 07/25/17 07/25/17 07/26/17 11:59 23:59 11:59 Intake Total 1660 Balance 1660 Weight 58.967 kg Intake: IV 1200 Left Wrist 1200 Oral 460 Other: Voiding Method Toilet Toilet # Voids 3 General: Alert, Oriented to Person, Oriented to Place, Oriented to Time, Cooperative, No acute distress Lungs: Wheezes (Improved) Cardiovascular: Regular rate - Results Results: Laboratory Results WBC 1.50 K/ul (4.00-12.00) L* 07/26/17 06:00 RBC 3.45 M/ul (3.90-5.20) L 07/26/17 06:00 Hgb 10.8 g/dL (12.0-16.0) L 07/26/17 06:00 Hct 33.4 % (34.5-46.5) L 07/26/17 06:00 MCV 96.9 fl (80.0-100.0) 07/26/17 06:00 MCH 31.4 pg (28.0-34.0) 07/26/17 06:00 MCHC 32.3 g/dL (30.0-36.0) 07/26/17 06:00 RDW 18.2 % (11.3-14.3) H 07/26/17 06:00 Plt Count 198 K/mm3 (130-400) 07/26/17 06:00 Neut % (Auto) 49.1 % (39.0-79.0) 07/25/17 15:15 Lymph % (Auto) 31.6 % (16.0-50.0) 07/25/17 15:15 [place] % (Auto) 6.2 % (0.0-11.0) 07/25/17 15:15 Eos % (Auto) 7.6 % (0.0-6.8) H 07/25/17 15:15 Baso % (Auto) 1.0 (0.0-1.5) 07/25/17 15:15 Neut # (Auto) 2.3 # k/uL (1.4-7.7) 07/25/17 15:15 Lymph # (Auto) 1.5 # k/uL (0.6-4.0) 07/25/17 15:15 [place] # (Auto) 0.3 # k/uL (0.0-0.9) 07/25/17 15:15 Eos # (Auto) 0.4 # k/uL (0.0-0.6) 07/25/17 15:15 Baso # (Auto) 0.0 # k/uL (0.0-0.5) 07/25/17 15:15 Seg Neutrophils % 58 % (39-79) 07/26/17 06:00 Band Neutrophils % 4 % (0-12) 07/26/17 06:00 Lymphocytes % 37 % (16-50) 07/26/17 06:00 Reactive Lymphs % 4.6 % (0.0-5.0) 07/25/17 15:15 Monocytes % 1 % (0-11) 07/26/17 06:00 Reactive Lymphs # 0.2 # k/uL (0.0-0.8) 07/25/17 15:15 Plt Morphology Comment Normal (NORMAL) 07/26/17 06:00 Hypochromasia 1+ (NEGATIVE) H 07/26/17 06:00 Anisocytosis 1+ (NEGATIVE) H 07/26/17 06:00 RBC Morph Comment Abnormal (NORMAL) H 07/26/17 06:00 Sodium 134 mmol/L (136-145) L 07/26/17 06:00 Potassium 4.4 mmol/L (3.5-5.0) 07/26/17 06:00 Chloride 99 mmol/L (98-110) 07/26/17 06:00 Carbon Dioxide 29 mmol/L (20-32) 07/26/17 06:00 BUN 8 mg/dL (10-26) L 07/26/17 06:00 Creatinine 0.5 mg/dL (0.4-1.5) 07/26/17 06:00 Estimated Creat Clear 99 07/26/17 06:00 Est GFR ( Amer) > 60 (60-) 07/26/17 06:00 Est GFR (Non-Af Amer) > 60 (60-) 07/26/17 06:00 Glucose 128 mg/dL (70-99) H 07/26/17 06:00 Calcium 9.4 mg/dL (8.5-10.5) 07/26/17 06:00 Total Bilirubin 0.4 mg/dL (0.2-1.2) 07/25/17 15:15 AST 29 U/L (0-41) 07/25/17 15:15 ALT 12 U/L (0-45) 07/25/17 15:15 Alkaline Phosphatase 19 U/L (46-116) L 07/25/17 15:15 Creatine Kinase 116 U/L (0-225) 07/26/17 06:00 CK-MB (CK-2) 1.9 ng/mL (0.0-5.6) 07/25/17 15:15 Troponin I < 0.03 ng/mL (0.03-0.06) L 07/26/17 03:00 NT-Pro-B Natriuret Pep 426.2 pg/mL (15.0-450.0) 07/25/17 15:15 Total Protein 7.5 g/dL (6.0-8.5) 07/25/17 15:15 Albumin 4.2 g/dL (3.0-5.5) 07/25/17 15:15 Assessment/Plan - Assessment/Plan (1) Asthma Status: Acute Current Visit: Yes Qualifiers: Asthma severity: unspecified severity Asthma complication type: with acute exacerbation Qualified Code(s): J45.901 - Unspecified asthma with (acute) exacerbation (2) Asthma exacerbation in COPD Status: Acute Current Visit: Yes Plan: Continue IV steroids, O2, and duonebs. Improving. (3) Hyponatremia Status: Acute Current Visit: Yes Plan: Resolved. (4) Hypoxemia requiring supplemental oxygen Status: Acute Current Visit: Yes (5) Chest pain Status: Acute Current Visit: Yes Qualifiers: Chest pain type: chest pain on breathing Qualified Code(s): R07.1 - Chest pain on breathing Plan: Cardiac enzymes negative. Telemetry normal. Suspect chest wall irritation. Tylenol prn.
[2017-07-26] MEDS: ACETAMINOPHEN 325 MG TABLET PO PRN (14:11)
[2017-07-26] MEDS: ENOXAPARIN SODIUM 40 MG/0.4 ML DISP.SYRIN SQ SCH (18:18)
[2017-07-27] MEDS: ACETAMINOPHEN 325 MG TABLET PO PRN (00:51)
[2017-07-27] MEDS: IPRATROPIUM/ALBUTEROL SULFATE 3 ML AMPUL.NEB NEB SCH ×4 (02:16→12:22)
[2017-07-27] MEDS: methylPREDNISolone SOD SUCC 40 MG/ML VIAL IVP SCH ×2 (06:08→12:29)
[2017-07-27 06:45] LABS: BASOPHILS % 0.2 (0.0-1.5); EOSINOPHILS % 1.6 % (0.0-6.8); MEAN CORPUSCULAR HEMOGLOBIN 31.3 pg (28.0-34.0); MEAN CORPUSCULAR VOLUME 95.3 fl (80.0-100.0); MONOCYTES % 3.9 % (0.0-11.0); NEUTROPHILS # 4.3 # k/uL (1.4-7.7)
[2017-07-27] MEDS: 0.9 % SODIUM CHLORIDE 1,000 ML IV SCH (06:54)
[2017-07-27 07:05] LABS: eGFR (African) > 60; eGFR (Non-African) > 60
--- NOTE | 2017-07-27 08:10 | Discharge Summary ---
Discharge Summary - Discharge Sumary History of Present Illness: Patient with asthma presented to the ER with asthma exacerbation via EMS with worsening SOB and wheezing for several days. She got progressively worse at 3: 00 this morning. Wears O2 at night. Tried wearing it with during the day due to her dyspnea but no help. In the ER, noted SAT to be 88% on her 4 liters with lots of wheezes. Had increased her duonebs to every 4 hours at home which helped for awhile. Responded well in the ER to IV solumedrol and duonebs. Had been having some chest pain when she coughs. Condition at Discharge: Stable Home Medications: Ambulatory Orders Medication Instructions Recorded Ipratropium/Albuterol Sulfate 3 ml NEB Q4 ampul.neb 07/27/17 [Duoneb] predniSONE [Deltasone] 10 mg PO DAILY #30 tablet 07/27/17 Consultations this Visit: None Procedures this Visit: None Allergies/Adverse Reactions: Allergies Allergy/AdvReac Type Severity Reaction Status Date / Time alendronate sodium Allergy Unknown Verified 07/25/17 15:20 [From Fosamax] aspirin Allergy Unknown Verified 07/25/17 15:20 cefuroxime Allergy Unknown Verified 07/25/17 15:20 chocolate flavor Allergy Unknown Verified 07/25/17 15:20 codeine Allergy Unknown Verified 07/25/17 15:20 egg yolk Allergy Unknown Verified 07/25/17 15:20 ibuprofen [From Advil] Allergy Unknown Verified 07/25/17 15:20 iodine Allergy Unknown Verified 07/25/17 15:20 milk Allergy Unknown Verified 07/25/17 15:20 ondansetron Allergy Unknown Verified 07/25/17 15:20 levofloxacin [From Levaquin] AdvReac Unknown No Reaction Verified 03/11/17 06:58 Patient Problems: Current Active Problems Problem Status Onset Asthma Acute Asthma exacerbation in COPD Acute Chest pain Acute Hyponatremia Acute Hypoxemia requiring supplemental oxygen Acute Discharge Summary: Patient admitted with asthma exacerbation and increased O2 requirement. She responded well to IV steroid, duonebs, and O2. Lovenox and NIKKO hose used for DVT prevention. No evidence of bacterial infection. She had quite a bit of chest pain when she would cough. Telemetry/EKG NSR and cardiac enzymes negative. Discharged home on prednisone taper. Hospital Course: Discharge Dx. Asthma exacerbation. Asthma. Hyponatremia. Disposition - home
[2017-07-27] MEDS: SALINE FLUSH 10 ML DISP.SYRIN IV SCH (08:48)
[2017-07-27 13:41] VITALS: BP 160/88
== END 2017-07-27 12:30 | disposition home or self-care (01) ==
LOC: ED 14:28 → SOUTH 17:33
PROVIDERS: ADMIT Family Medicine; ATTEND Family Medicine
DX: J45.901 Unspecified asthma with (acute) exacerbation (principal)
CPT/HCPCS: 36415; 71010; 80048; 80053; 82550; 82553; 83880; 84484; 85025; 87040; 93005; 94640; 94760; G0378; J1030; J1650; J7030; J7060; 96361; 96374; 96375; 96376; 99284; J2920; S1016

== ENCOUNTER 2017-09-12 17:56 | Emergency (ER) | payer MEDICARE, OTHER ==
--- NOTE | 2017-09-12 18:07 | ED Physician Documentation ---
General Adult - HISTORIAN Historian: patient - HPI Stated Complaint: congestion, wheezing Chief Complaint: General Adult Onset: hours Timing: still present Severity: moderate Further Comments: yes (Pt is a 77 yo female with hx asthma, COPD, who has had wheezing and sob x 1 day. Pt has used inhalers at home, but continues to be wheezy. No chest pain. No fever. Pt uses home O2 at night.) - ROS CONST: weakness, other (malaise) EYES/ENT: none CVS/RESP: shortness of breath, cough, other (wheezing) GI/: none MS/SKIN/LYMPH: none - PAST HX Past History: other (Asthma, COPD, recurrent pneumonia, osteoporosis, ) Surgeries/Procedures: other (appendectomy, tonsillectomy, salping/oophrectomy.) Allergies/Adverse Reactions: Allergies Allergy/AdvReac Type Severity Reaction Status Date / Time alendronate sodium Allergy Unknown Verified 09/12/17 20:38 [From Fosamax] aspirin Allergy Unknown Verified 09/12/17 20:38 cefuroxime Allergy Unknown Verified 09/12/17 20:38 chocolate flavor Allergy Unknown Verified 09/12/17 20:38 codeine Allergy Unknown Verified 09/12/17 20:38 egg yolk Allergy Unknown Verified 09/12/17 20:38 ibuprofen [From Advil] Allergy Unknown Verified 09/12/17 20:38 iodine Allergy Unknown Verified 09/12/17 20:38 milk Allergy Unknown Verified 09/12/17 20:38 ondansetron Allergy Unknown Verified 09/12/17 20:38 levofloxacin [From Levaquin] AdvReac Unknown No Reaction Verified 03/11/17 06:58 Home Medications: Ambulatory Orders Medication Instructions Recorded Ipratropium/Albuterol Sulfate 3 ml NEB Q4 ampul.neb 07/27/17 [Duoneb] Amoxicillin [Trimox] 500 mg PO QID #40 capsule 09/12/17 Prednisone 10 mg PO QID #40 tablet 09/12/17 - SOCIAL HX Smoking History: non-smoker - FAMILY HX Family History: No - VITAL SIGNS Vital Signs: Vital Signs Temp Pulse Resp BP Pulse Ox 146/74 07/27/17 10:00 - REVIEWED ASSESSMENTS Nursing Assessment Reviewed: Yes Vitals Reviewed: Yes Progress - Progress Progress: Salvadorb HFN Care transferreed to Dr. Resendez at 7 pm. CXR: Single view of the chest demonstrates a normal cardiac silhouette. Tortuosity of thoracic aorta. Stable hilar and interstitial parenchymal fullness. Stable fullness at the right diaphragm. Osseous structures are appropriate for age. Pt received another Duoneb HFN tx and solu-medrol 125 mg and was given Amoxicillin by Dr. Resendez. General Adult Physical Exam - PHYSICAL EXAM GENERAL APPEARANCE: moderate distress EENT: pharynx normal NECK: normal inspection, supple RESPIRATORY: chest non-tender, wheezes CVS: reg rate & rhythm, heart sounds normal ABDOMEN: soft, no organomegaly, normal bowel sounds BACK: normal inspection, no CVA tenderness SKIN: warm/dry, normal color EXTREMITIES: non-tender, normal range of motion NEURO: oriented X3, motor nml, sensation nml Discharge Clincal Impression: Asthmatic bronchitis Prescriptions: Amoxicillin [Trimox] 500 mg PO QID #40 capsule Prednisone 10 mg PO QID #40 tablet Referrals: Laureen Milan MD [Primary Care Provider] - 2 Days Condition: Stable Disposition: 01 HOME, SELF-CARE Decision to Admit: NO Decision Time: 20:40
[2017-09-12] MEDS ORDERED: IPRATROPIUM/ALBUTEROL SULFATE 3 ML AMPUL.NEB NEB ONE (18:16)
[2017-09-12] MEDS: IPRATROPIUM/ALBUTEROL SULFATE 3 ML AMPUL.NEB NEB ONE ×2 (18:20→19:45)
[2017-09-12 18:48] LABS: BASOPHILS % 0.8 (0.0-1.5); MEAN CORPUSCULAR HEMOGLOBIN 30.8 pg (28.0-34.0); MEAN CORPUSCULAR VOLUME 93.5 fl (80.0-100.0); MONOCYTES % 7.9 % (0.0-11.0); NEUTROPHILS # 1.7 # k/uL (1.4-7.7)
[2017-09-12 18:50] LABS: eGFR (African) > 60; eGFR (Non-African) > 60
[2017-09-12] MEDS: methylPREDNISolone SOD SUCC 125 MG/2 ML VIAL IVP ONE (19:00)
--- NOTE | 2017-09-12 19:02 | Diagnostic Imaging Report ---
[facility] [address] [facility] [address] Report Submission Date: Sep 12, 2017 6:56:59 PM CDT Patient Study Name: BEBETO RANDOLPH Date: Sep 12, 2017 6:33:18 PM CDT Modality Type: CR Gender: F Description: CHEST : 36 Institution: [facility] Physician: DIAZ MORENO - ER Examination: Portable chest History: Chest discomfort Comparison exam: 25 July 2017 Findings: Single view of the chest demonstrates a normal cardiac silhouette. Tortuosity of thoracic aorta. Stable hilar and interstitial parenchymal fullness. Stable fullness at the right diaphragm. Osseous structures are appropriate for age. Impression: Stable chronic appearing interstitial and hilar prominence. If patient's symptoms persist, consider obtaining high-resolution CT chest to further evaluate. Electronically signed on Sep 12, 2017 6:56:59 PM CDT by: Basil POOLE
[2017-09-12] MEDS: AMOXICILLIN 500 MG CAPSULE PO ONE (19:50)
[2017-09-12 20:50] VITALS: BP 119/79
== END 2017-09-12 20:19 | disposition home or self-care (01) ==
LOC: ED 17:56
DX: J45.998 Other asthma (principal)
CPT/HCPCS: 71010; 80053; 85025; 87040; J2930; 96372; 99283; S1016

== ENCOUNTER 2018-02-17 13:35 | Outpatient (CLI) | payer MEDICARE, OTHER ==
--- NOTE | 2018-02-18 08:31 | Diagnostic Imaging Report ---
BINTA MACIAS [facility] [address] [facility] [address] [address] Report Submission Date: Feb 17, 2018 2:21:58 PM CDT Patient Study Name: BEBETO RANDOLPH Date: Feb 17, 2018 1:42:20 PM CDT Modality Type: DX Gender: F Description: CHEST : 36 Institution: [facility] Physician: BINTA MACIAS Examination: Plain film chest/left ribs History: LEFT RIBS, PAIN IN LOWER LEFT RIBS, WORSENING X2 WEEKS, NO KNOWN INJURY , PT STATES HX OF LUNG SURGERY MANY YEARS AGO, BUT UNCERTAIN OF THE TYPE OF SURGERY (Hx) Findings: 4 views of the chest and left ribs demonstrates generalized osteopenia. No acute fracture or dislocation. Old lower rib fracture deformities. Underlying parenchymal without abnormality. Chronic interstitial changes. No focal infiltrative process. Curvature of the thoracic spine to the right. Hilar granuloma. Impression: No rib fracture/abnormality. Chronic interstitial changes without acute appearing process. Electronically signed on Feb 17, 2018 2:21:58 PM CDT by: Basil POOLE
--- NOTE | 2018-02-18 08:31 | Diagnostic Imaging Report ---
BINTA MACIAS [facility] [address] [facility] [address] [address] Report Submission Date: Feb 17, 2018 2:29:59 PM CDT Patient Study Name: BEBETO RANDOLPH Date: Feb 17, 2018 1:53:58 PM CDT Modality Type: DX Gender: F Description: ABDOMEN : 36 Institution: [facility] Physician: BINTA MACIAS Examination: Abdomen History: KUB, LLQ PAIN WORSENING X2 WEEKS, NO KNOWN INJURY (Hx) Findings: 2 views obtained of the abdomen. No abnormal dilation of the large or small bowel. Air and stool throughout the large bowel. No suspicious calcification projecting over the renal fossa. Pelvic phleboliths. Osteopenia degenerative disease and lumbar curvature. Impression: No obstruction. Electronically signed on Feb 17, 2018 2:29:59 PM CDT by: Basil POOLE
== END 2018-02-17 13:36 ==
LOC: RAD 13:35
PROVIDERS: ATTEND Family Medicine
DX: R10.12 Left upper quadrant pain (principal); R07.81 Pleurodynia
CPT/HCPCS: 71100; 74018

== ENCOUNTER 2019-03-23 14:36 | Outpatient (CLI) | payer MEDICARE, OTHER | END 2019-03-23 14:37 | LOC: LABRHC 14:36 | PROVIDERS: ATTEND Family Medicine | DX: R30.0 Dysuria (principal); B96.20 Unspecified Escherichia coli [E. coli] as the cause of diseases classified elsewhere; Z16.11 Resistance to penicillins | CPT/HCPCS: 87086 ==

== ENCOUNTER 2019-05-18 14:00 | Outpatient (CLI) | payer MEDICARE, OTHER ==
[2019-05-24 09:41] LABS: eGFR (Non-African) > 60
[2019-05-24 09:42] LABS: BASOPHILS % 0.5 % (0.0-1.5); HYPOCHROMASIA 2+ (NEGATIVE); NEUTROPHILS # 2.6 # k/uL (1.4-7.7); STOMATOCYTES 1+ (NEGATIVE)
[2019-05-24 09:43] LABS: OVALOCYTES 1+ (NEGATIVE)
== END 2019-05-18 14:03 ==
LOC: LABRHC 14:00
PROVIDERS: ATTEND Family Medicine
DX: R53.1 Weakness (principal)
CPT/HCPCS: 36415; 80053; 85025

== ENCOUNTER 2019-09-17 18:30 | Emergency (ER) | payer MEDICARE, OTHER ==
--- NOTE | 2019-09-17 18:45 | ED Physician Documentation ---
Addendum entered and electronically signed by Dawood Mcpherson MD 09/18/19 01:40: Pt given Metoprolol 5 mg IV and Metoprolol 12.5 mg po (evening dose) in ER for HTN. Original Note: General Adult - HISTORIAN Historian: patient - HPI Stated Complaint: vomiting Chief Complaint: Cough/ Upper Respiratory Onset: other (she has had a "cold" for 4 weeks and vomiting today ) Timing: still present Severity: moderate Further Comments: yes (She reports she started with what she feels was a "cold" four weeks ago. Dr Milan put her on Doxycycline last week and she is concerned this is making her vomit - she started vomiting this am and she is not sure how many vomiting episodes. She has not measured a fever but has had ch ills. She states "I just feel like crap") - ROS CONST: fever EYES/ENT: nasal drainage, nasal congestion CVS/RESP: shortness of breath, cough GI/: vomiting. denies: nausea, diarrhea MS/SKIN/LYMPH: denies: rash NEURO/PSYCH: headache - PAST HX Past History: asthma, COPD Immunizations: UTD - SOCIAL HX Smoking History: non-smoker Alcohol Use: none Drug Use: none - FAMILY HX Family History: No - VITAL SIGNS Vital Signs: Vital Signs Temp Pulse Resp BP Pulse Ox 97.0 F L 64 20 196/65 95 09/17/19 18:39 09/17/19 18:39 09/17/19 18:39 09/17/19 18:39 09/17/19 18:39 - REVIEWED ASSESSMENTS Nursing Assessment Reviewed: Yes Vitals Reviewed: Yes <Rachel Yeh - Last Filed: 09/17/19 18:47> - VITAL SIGNS Vital Signs: Vital Signs Temp Pulse Resp BP Pulse Ox 97.0 F L 64 20 196/65 95 09/17/19 18:39 09/17/19 18:39 09/17/19 18:39 09/17/19 18:39 09/17/19 18:39 <Dawood Mcpherson - Last Filed: 09/17/19 23:26> - PAST HX Allergies/Adverse Reactions: Allergies Allergy/AdvReac Type Severity Reaction Status Date / Time alendronate sodium Allergy Unknown Verified 09/17/19 18:45 [From Fosamax] aspirin Allergy Unknown Verified 09/17/19 18:45 cefuroxime Allergy Unknown Verified 09/17/19 18:45 chocolate flavor Allergy Unknown Verified 09/17/19 18:45 codeine Allergy Unknown Verified 09/17/19 18:45 egg yolk Allergy Unknown Verified 09/17/19 18:45 ibuprofen [From Advil] Allergy Unknown Verified 09/17/19 18:45 iodine Allergy Unknown Verified 09/17/19 18:45 milk Allergy Unknown Verified 09/17/19 18:45 ondansetron Allergy Unknown Verified 09/17/19 18:45 levofloxacin [From Levaquin] AdvReac Unknown No Reaction Verified 03/11/17 06:58 Home Medications: Ambulatory Orders Medication Instructions Recorded Sulfamethoxazole/Trimethoprim 1 each PO BID #14 tab 09/17/19 [Bactrim Ds] Progress - Progress Progress: CXR: The heart size is normal. There is mild pulmonary venous congestion. No pleural effusion, pneumothorax or alveolar consolidation. Influenza A & B - neg U/A - 1+ blood Duoneb HFN in ER Bun/Cre ratio = 32 NS 1.5 L IVF some improvement ? nausea 2nd to Doxycycline (unclear what specifically Doxycycline is treating--? empiric for pulm process) Rx Bactrin DS bid x 7 days F/u pcp this week - EKG/XRAY/CT EKG: NSR (HR=73; normal EKG.) <Dawood Mcpherson - Last Filed: 09/17/19 23:26> ED Results Lab/Radiology - Orders Orders: ED Orders Category Date Time Status IV Started NOW Care 09/17/19 18:45 Active CHEST 1VIEW [RAD] Stat Exams 09/17/19 Completed CHEST 1VIEW [RAD] Stat Exams 09/17/19 Ordered BLOOD CULTURE Stat Lab 09/17/19 Ordered CBC/PLATELET/DIFF Stat Lab 09/17/19 19:28 Received CKMB Stat Lab 09/17/19 20:03 Received CMP Stat Lab 09/17/19 19:28 Received CREATINE KINASE Routine Lab 09/17/19 20:03 Received INFLUENZA A&B Stat Lab 09/17/19 18:45 Uncollected LACTATE Stat Lab 09/17/19 19:28 Received NT BNP Stat Lab 09/17/19 19:28 Received TROPONIN I Stat Lab 09/17/19 20:03 Received UA W/MICRO IF INDICATED Routine Lab 09/17/19 18:46 Ordered 0.9 % Sodium Chloride [Normal Saline] 500 ml Med 09/17/19 19:25 Active IV NOW Ipratropium/Albuterol Sulfate [Duoneb] Med 09/17/19 18:49 Discontinued 3 ml NEB NOW ONE Promethazine HCl [Phenergan] 25 mg Med 09/17/19 19:45 Discontinued 0.9 % Sodium Chloride [Normal Saline] 50 ml IV NOW EKG WITH COMPARISON Stat Ther 09/17/19 Ordered <Dawood Mcpherson - Last Filed: 09/17/19 23:26> General Adult Physical Exam - PHYSICAL EXAM GENERAL APPEARANCE: no distress EENT: eye inspection normal, pharynx normal, no signs of dehydration NECK: normal inspection RESPIRATORY: chest non-tender, wheezes CVS: reg rate & rhythm, heart sounds normal ABDOMEN: soft, normal bowel sounds, no distension BACK: normal inspection SKIN: warm/dry EXTREMITIES: non-tender, normal range of motion, no evidence of injury, no edema NEURO: oriented X3 <Rachel Yeh - Last Filed: 09/17/19 18:47> Discharge <Rachel Yeh - Last Filed: 09/17/19 18:47> Decision to Admit: NO Decision Time: 23:26 <Dawood Mcpherson - Last Filed: 09/17/19 23:26> Clincal Impression: malaise, dehydration, hematuria Prescriptions: Sulfamethoxazole/Trimethoprim [Bactrim Ds] 1 each PO BID #14 tab Referrals: Laureen Milan MD [Primary Care Provider] - Condition: Stable Disposition: 01 HOME, SELF-CARE
[2019-09-17] MEDS ORDERED: IPRATROPIUM/ALBUTEROL SULFATE 3 ML AMPUL.NEB NEB ONE (18:49)
--- NOTE | 2019-09-17 19:14 | Diagnostic Imaging Report ---
PATIENT MR#: [id number] PATIENT PATIENT NAME: BEBETO RANDOLPH DATE OF : 1940 REFERRING PHYSICIAN: Rachel Yeh EXAM DATE: 09/17/2019 ACCESSION NUMBER: [id number] EXAM DESCRIPTION: CHEST 1VIEW Portable view chest Clinical history: Cough Findings: The heart size is normal. There is mild pulmonary venous congestion. No pleural effusion, pneumothora x or alveolar consolidation. Read by: Dr. Hong Bates Transcribed by: Transcribed Date: Electronically signed by: Dr. Hong Bates Date signed: 09/17/2019 7:13:51 PM
[2019-09-17] MEDS ORDERED: 0.9 % SODIUM CHLORIDE 500 ML IV ONE ×3 (19:25→22:19)
[2019-09-17] MEDS ORDERED: PROMETHAZINE HCL 25 MG in 0.9 % SODIUM CHLORIDE 50 ML IV ONE (19:45)
[2019-09-17] MEDS ORDERED: SULFAMETHOXAZOLE/TRIMETHOPRIM 800/160MG TAB PO ONE (23:16)
[2019-09-17] MEDS ORDERED: METOPROLOL TARTRATE 5 MG/5 ML VIAL IV ONE (23:58)
[2019-09-17] MEDS ORDERED: METOPROLOL TARTRATE 25 MG TABLET PO STA (23:59)
[2019-09-18] MEDS: METOPROLOL TARTRATE 50 MG TABLET ONE ×2 (00:24)
[2019-09-18 00:47] VITALS: BP 162/71
[2019-09-18 06:35] LABS: APPEARANCE,URINE CLEAR (CLEAR); COLOR,URINE YELLOW (YELLOW); OCCULT BLOOD,URINE 1+ (NEGATIVE); UROBILINOGEN URINE 0.2 Eu (0.2-1.0)
[2019-09-18 07:05] LABS: BASOPHILS % 0.4 % (0.0-1.5); NEUTROPHILS # 1.9 # k/uL (1.4-7.7)
[2019-09-18 07:06] LABS: eGFR (Non-African) > 60
== END 2019-09-18 00:31 | disposition home or self-care (01) ==
LOC: ED 18:30
DX: E86.0 Dehydration (principal); R31.9 Hematuria, unspecified; R53.81 Other malaise; R05 Cough; R50.9 Fever, unspecified; R11.10 Vomiting, unspecified; R09.81 Nasal congestion; R06.02 Shortness of breath; R51 Headache
CPT/HCPCS: 71045; 80053; 82550; 82553; 83605; 83880; 84484; 85025; 94640; 96361; 96374; 99284; A9270; J2550; J7060; 81002; 87040; 87400; 93005; J3490; S1016